=== PATIENT | male | born 1955 | race Caucasian/White ===

== ENCOUNTER 2021-08-04 22:11 | Emergency (ER) | payer MEDICARE ==
[~2021-08-04] VITALS: Ht 182.9 cm; Wt 81.7 kg
== END 2021-08-05 00:40 | disposition home or self-care (01) ==
LOC: ER 22:11
DX: J20.9 Acute bronchitis, unspecified (principal)
CPT/HCPCS: 71045; 94640; 99284-25; A9270; J7512

== ENCOUNTER 2021-09-06 09:52 | Inpatient (IN) | payer MEDICARE ==
[~2021-09-06] VITALS: Ht 182.9 cm; Wt 83.9 kg
[2021-09-06 11:02] LABS: BASOPHILS PERCENT AUTO 1 % (0-2); EOSINOPHILS ABSOLUTE AUTO 0.41 K/mm3 (0.00-0.68); EOSINOPHILS PERCENT AUTO 5 % (0-6); Hematocrit 50.3 % (37.0-53.0); Hemoglobin 17.5 g/dL (13.5-17.5); IMMATURE GRAN ABSOLUTE AUTO 0.03 K/mm3 (0.00-0.10); IMMATURE GRAN PERCENT AUTO 0 % (0-1); LYMPHOCYTES ABSOLUTE AUTO 3.11 K/mm3 (0.84-5.20); LYMPHOCYTES PERCENT AUTO 36 % (21-46); MONOCYTES ABSOLUTE AUTO 0.61 K/mm3 (0.16-1.47); MONOCYTES PERCENT AUTO 7 % (4-13); Mean Corpuscular HGB 32.6 pg (26.0-34.0); Mean Corpuscular HGB Conc 34.8 g/dL (31.5-36.5); Mean Corpuscular Volume 94 fL (80-100); Mean Platelet Volume 9.5 fL (9.1-12.4); NEUTROPHILS PERCENT AUTO 51 % (41-73); Platelet Count 284 K/mm3 (150-400); RDW Coefficient Variation 14.1 % (11.7-14.2); Red Blood Cell Count 5.36 M/mm3 (4.30-5.90); White Blood Cell Count 8.76 K/mm3 (4.00-11.30)
[2021-09-06 11:23] LABS: Alanine Aminotransfer (ALT/SGP 31 U/L (12-78); Alk Phos 40 U/L (50-136); Anion Gap 6 mmol/L (6-16); Aspartate Aminotrans (AST/SGOT 26 U/L (12-37); Bilirubin, Total 0.5 mg/dL (0.1-1.0); Blood Urea Nitrogen 18 mg/dL (8-24); Bun/Creatinine Ratio 20.7 (12.0-20.0); CO2, Blood 26 mmol/L (21-32); Chloride, Blood 107 mmol/L (98-108); Creatinine, Blood 0.87 mg/dL (0.60-1.20); Globulin, Blood 4.2 g/dL (2.2-4.0); Glomerular Filtration Rate >60 (60-); Glucose, Blood 105 mg/dL (70-99); Potassium, Blood 4.4 mmol/L (3.5-5.5); Sodium, Blood 139 mmol/L (136-145); Total Protein, Blood 8.2 g/dL (6.4-8.2); Troponin I 0.238 ng/mL (0.000-0.040)
--- NOTE | 2021-09-06 18:58 | NUR ---
PATIENT ADMITTED FROM ED WITH SOB. PATIENT ON 3L NC UPON ADMITTING TO UNIT, SATURATING 94%. PATIENT STATES HE FEELS 'ALOT BETTER' THAN HE DID EARLIER IN DAY. TELE MONITORING STARTED, SINUS TACHY 110. PATIENT DENIES CP. BP ELEVATED 206/114. CONTACTED, ONE TIME ORDER FOR 5MG METOPROLOL GIVEN.
[2021-09-06] MEDS ORDERED: GUAI600T33 PO (23:55)
[2021-09-07 03:38] LABS: BASOPHILS ABSOLUTE AUTO 0.02 K/mm3 (0.00-0.23); BASOPHILS PERCENT AUTO 0 % (0-2); EOSINOPHILS PERCENT AUTO 0 % (0-6); Hematocrit 49.1 % (37.0-53.0); Hemoglobin 17.2 g/dL (13.5-17.5); IMMATURE GRAN ABSOLUTE AUTO 0.04 K/mm3 (0.00-0.10); IMMATURE GRAN PERCENT AUTO 0 % (0-1); LYMPHOCYTES ABSOLUTE AUTO 1.18 K/mm3 (0.84-5.20); LYMPHOCYTES PERCENT AUTO 11 % (21-46); MONOCYTES PERCENT AUTO 1 % (4-13); Mean Corpuscular HGB 32.6 pg (26.0-34.0); Mean Corpuscular Volume 93 fL (80-100); Mean Platelet Volume 9.5 fL (9.1-12.4); NEUTROPHILS ABSOLUTE AUTO 9.81 K/mm3 (1.96-9.15); NEUTROPHILS PERCENT AUTO 88 % (41-73); Platelet Count 266 K/mm3 (150-400); RDW Standard Deviation 48.6 fL (35.1-46.3); Red Blood Cell Count 5.27 M/mm3 (4.30-5.90); White Blood Cell Count 11.15 K/mm3 (4.00-11.30)
[2021-09-07 03:57] LABS: Anion Gap 5 mmol/L (6-16); Blood Urea Nitrogen 21 mg/dL (8-24); Bun/Creatinine Ratio 24.9 (12.0-20.0); CHOL/HDL RATIO 4.6; CO2, Blood 26 mmol/L (21-32); Calcium, Blood 9.1 mg/dL (8.5-10.1); Chloride, Blood 108 mmol/L (98-108); Cholesterol 257 mg/dL (50-200); Creatinine, Blood 0.84 mg/dL (0.60-1.20); Glomerular Filtration Rate >60 (60-); Glucose, Blood 161 mg/dL (70-99); HDL Cholesterol 56 mg/dL (>39); LDL/HDL RATIO 3.2; Low Density Lipoprotein Chol 180 mg/dL (0-110); Potassium, Blood 4.3 mmol/L (3.5-5.5); Sodium, Blood 139 mmol/L (136-145); Triglycerides 104 mg/dL (30-160); Very Low Density Lipoprot Chol 20 mg/dL (6-32)
--- NOTE | 2021-09-07 09:49 | NUR ---
Echocardiogram completed.
[2021-09-07] MEDS ORDERED: GUAI600T33 PO (11:27)
[2021-09-07] MEDS ORDERED: ASPI81CH PO (11:27)
[2021-09-07] MEDS ORDERED: AIRDUO RESPICL1 EAC4 (11:28)
[2021-09-07] MEDS ORDERED: AZIT500 PO (11:28)
[2021-09-07] MEDS ORDERED: AMLO5 PO (11:29)
[2021-09-07] MEDS ORDERED: COMBIVENT RESPIM4 G1 INH (11:31)
[2021-09-07] MEDS ORDERED: Prednisone10 MG PO (11:32)
[2021-09-07] MEDS ORDERED: Chantix1 MG PO (11:34)
--- NOTE | 2021-09-07 12:02 | NUR ---
DISCHARGE: ABLE TO WEAN PT TO RA THIS AM. SP02 96%, PT DENIES SOB. DISCHARGE PACKET PRINTED AND PT EDUCATED. MEDS FAXED TO [facility] IN [place]. IV DC'D WNL. PT LEFT UNIT AT 1200 VIA WHEELCHAIR WITH NIKIA CLEMONS.
== END 2021-09-07 15:00 | disposition home or self-care (01) | DRG 189 ==
LOC: ER 09:52 → SURS 13:53 → ERHOLD 13:53 → SURS 18:08
PROVIDERS: Physician Assistant; ADMIT Internal Medicine
PROC: 5A09357 Assistance with Respiratory Ventilation, Less than 24 Consecutive Hours, Continuous Positive Airway Pressure (ICD-10-PCS; principal; 2021-09-06)
DX: J96.01 Acute respiratory failure with hypoxia (principal); I21.A1 Myocardial infarction type 2; J44.1 Chronic obstructive pulmonary disease with (acute) exacerbation; Z66 Do not resuscitate; F17.210 Nicotine dependence, cigarettes, uncomplicated; I73.9 Peripheral vascular disease, unspecified
CPT/HCPCS: 36415; 71045; 80048; 80053; 80061; 83880; 84484; 85025; 93005; 93010; 93306; 94640; 94660; 94664; 94760; 94762; 96374; 99284-25; A9270; J1650; J2930

== ENCOUNTER 2023-08-21 06:42 | Inpatient (IN) | payer OTHER ==
[2023-08-21] VITALS (15 sets, daily range): BP systolic 113–163; BP diastolic 61–96
[~2023-08-21] VITALS: Ht 182.9 cm; Wt 77.4 kg
[~2023-08-21 06:42] MED LIST: AIRDUO RESPICL1 EAC4; AMLO5 PO; ASPI81CH PO; AZIT500 PO; COMBIVENT RESPIM4 G1 INH; Chantix1 MG PO; GUAI600T33 PO; Prednisone10 MG PO
[2023-08-21 07:00] LABS: PCO2 Arterial 44.5 mmHg (35-45); PO2 Arterial 162 mmHg (80-100)
[2023-08-21 07:03] LABS: BASOPHILS ABSOLUTE AUTO 0.08 K/mm3 (0.00-0.23); BASOPHILS PERCENT AUTO 1 % (0-2); EOSINOPHILS ABSOLUTE AUTO 0.64 K/mm3 (0.00-0.68); EOSINOPHILS PERCENT AUTO 6 % (0-6); Hematocrit 48.8 % (37.0-53.0); Hemoglobin 16.6 g/dL (13.5-17.5); IMMATURE GRAN ABSOLUTE AUTO 0.02 K/mm3 (0.00-0.10); IMMATURE GRAN PERCENT AUTO 0 % (0-1); LYMPHOCYTES ABSOLUTE AUTO 3.45 K/mm3 (0.84-5.20); LYMPHOCYTES PERCENT AUTO 34 % (21-46); MONOCYTES ABSOLUTE AUTO 0.74 K/mm3 (0.16-1.47); MONOCYTES PERCENT AUTO 7 % (4-13); Mean Corpuscular HGB 32.9 pg (26.0-34.0); Mean Corpuscular Volume 97 fL (80-100); Mean Platelet Volume 9.7 fL (9.1-12.4); NEUTROPHILS ABSOLUTE AUTO 5.11 K/mm3 (1.96-9.15); NEUTROPHILS PERCENT AUTO 51 % (41-73); Platelet Count 247 K/mm3 (150-400); RDW Coefficient Variation 14.2 % (11.7-14.2); RDW Standard Deviation 50.2 fL (35.1-46.3); Red Blood Cell Count 5.04 M/mm3 (4.30-5.90); White Blood Cell Count 10.04 K/mm3 (4.00-11.30)
[2023-08-21 07:05] LABS: Calcium, Ionized (POC) 1.07 mmol/L (1.10-1.46); Chloride (POC) 108 mmol/L (98-108); Creatinine (POC) 1.1 mg/dL (0.8-1.3); Glucose (ISTAT POC) 219 mg/dL (70-99); Hemoglobin (POC) 17.3 g/dL (13.5-17.5); Potassium (POC) 4.7 mmol/L (3.5-5.5); Sodium (POC) 140 mmol/L (135-148); Total CO2 (POC) 22 mmol/L (21-32)
[2023-08-21 07:27] LABS: Albumin, Blood 3.7 g/dL (3.4-5.0); Albumin/Globulin Ratio 0.9 (0.8-1.8); Bilirubin, Total 0.5 mg/dL (0.1-1.0); Bun/Creatinine Ratio 14.7 (12.0-20.0); Calcium, Blood 8.8 mg/dL (8.5-10.1); Creatinine, Blood 1.16 mg/dL (0.60-1.20); Potassium, Blood 4.5 mmol/L (3.5-5.5); Total Protein, Blood 7.7 g/dL (6.4-8.2)
[2023-08-21 07:47] LABS: Influenza A, PCR NEGATIVE (NEGATIVE); Influenza B, PCR NEGATIVE (NEGATIVE); Resp Syncytial Virus, PCR NEGATIVE (NEGATIVE); SARS-Cov-2 (COVID-19) PCR, MMC NEGATIVE (NEGATIVE)
[2023-08-21 09:41] LABS: Anti-Xa UFH, PHA Monitoring <0.10 IU/mL; International Normalized Ratio 1.04; Prothrombin Time Results 10.9 Sec (9.7-11.5)
[2023-08-21 10:17] LABS: pH Blood Venous 7.33 (7.34-7.37)
[2023-08-21 10:18] LABS: Base Excess Venous -2.1 mmol/L; Bicarbonate Venous 22.4 mmol/L (24.0-30.0); PCO2 Venous 45.2 mmHg (38-42)
--- NOTE | 2023-08-21 15:17 | NUR ---
Spoke with Dr Weldon and discussed case. Pt admitted for stroke and his wishes are Full Code. Pt may benefit from completing POLST reflecting his wishes. Pt resting in bed and is A&OX4. Pt does have slurred speech. Pt denies pain, anxiety, and nausea. Pt does have a non productive cough contributing to SOB. Pt's SO Mirian at bedside. Engaged in therapeutic discussion regarding POLST form. Educated on choices and answered questions. Pt requests SO Mirian to complete for him. POLST completed and hung on Pt's whiteboard for hospitalist to sign during rounds. Brief review of plan of care. Pt and SO report no concerns at this time. Palliative Care will remain available
--- NOTE | 2023-08-21 17:50 | NUR ---
PT ARRIVED TO [facility] AT APROX 1050 FROM ER VIA GURNEY. PT TRANSFERED OVER TO HOSPITAL BED BY CLINICAL STAFF. A&OX4, L SIDED FACIAL DROOP, L TOUNGE DEVIATION, L UPPER EXTREMITY WEAKNESS, NO ENROLLMENT COORDINATOR, FULL SENSATION TO L SIDE, DENIES NUMBNESS/TINGLING. FAILED BEDSIDE SWALLOW IN ER, PT IS NPO UNTIL EVALUATED BY ST. ADMISSION COMPLETED OTHER THAN MED REC. PT'S PHARMACY IS NOT OPEN TODAY, WILL NEED MED LIST OBTAINED TOMORROW BY RN. SEE DOCUMENTED VS AND ASSESSMENT. HEPARIN GTT RUNING PER ORDERS ON ARRIVAL FROM ER, SETTINGS CHECKED BY THIS RN AND ARE CORRECT. ECHO COMPLETED. NEURO CHECKS Q 4 HRS PER MD ORDER, NO CHANGES T/O SHIFT. PALLIATIVE CARE VISITED PT AND SO, SEE NOTE. NO ACUTE DISTRESS NOTED. PT IS RESTING WITH EYES CLOSED, RESPIRATIONS EVEN AND UNLABORED, APPEARS TO BE SLEEPING AT THIS TIME. CALL LIGHT IN REACH, WILL CONINTUE TO MONITOR AND GIVE REPORT TO NOC SHIFT RN.
[2023-08-22 03:41] LABS: BASOPHILS ABSOLUTE AUTO 0.01 K/mm3 (0.00-0.23); BASOPHILS PERCENT AUTO 0 % (0-2); EOSINOPHILS PERCENT AUTO 0 % (0-6); Hematocrit 42.1 % (37.0-53.0); Hemoglobin 14.8 g/dL (13.5-17.5); IMMATURE GRAN ABSOLUTE AUTO 0.05 K/mm3 (0.00-0.10); IMMATURE GRAN PERCENT AUTO 0 % (0-1); LYMPHOCYTES ABSOLUTE AUTO 1.35 K/mm3 (0.84-5.20); LYMPHOCYTES PERCENT AUTO 11 % (21-46); MONOCYTES ABSOLUTE AUTO 0.23 K/mm3 (0.16-1.47); MONOCYTES PERCENT AUTO 2 % (4-13); Mean Corpuscular HGB 33.2 pg (26.0-34.0); Mean Corpuscular HGB Conc 35.2 g/dL (31.5-36.5); Mean Corpuscular Volume 94 fL (80-100); Mean Platelet Volume 9.7 fL (9.1-12.4); NEUTROPHILS PERCENT AUTO 87 % (41-73); Platelet Count 222 K/mm3 (150-400); RDW Standard Deviation 48.9 fL (35.1-46.3); Red Blood Cell Count 4.46 M/mm3 (4.30-5.90); White Blood Cell Count 12.34 K/mm3 (4.00-11.30)
[2023-08-22 04:00] LABS: Albumin, Blood 3.4 g/dL (3.4-5.0); Bilirubin, Total 0.7 mg/dL (0.1-1.0); Bun/Creatinine Ratio 21.6 (12.0-20.0); Calcium, Blood 8.9 mg/dL (8.5-10.1); Creatinine, Blood 1.02 mg/dL (0.60-1.20); Globulin, Blood 3.4 g/dL (2.2-4.0); Potassium, Blood 4.3 mmol/L (3.5-5.5); Total Protein, Blood 6.8 g/dL (6.4-8.2)
[2023-08-22 05:20] VITALS: BP 158/81
--- NOTE | 2023-08-22 05:50 | NUR ---
End of shift note. Pt has been resting on and off throughout the night. Some irritation about the amount of blood draws and NPO status. Pt was educated on ST eval during dayshift and the importance of coag results. No changes with neuro status. LUE remains flaccid with postive sensation. Facial droop remains unchanged. LLE WNL. Pt is able to make needs known, call light is within reach.
[2023-08-22 07:18] VITALS: BP 146/86
--- NOTE | 2023-08-22 07:30 | NUR ---
INITIAL ASSESSMENT: Patient is alert and oriented x4.He has a left facial droop and left tounge deviation. His left hand is flaccid, he is able to lift his arm with the assistance of his right arm. His pedal plantar flexion is weak on the left and he is not able to perfrom both feet at the same time. His left pupil is sluggish compared to a brisk right pupil. He denies pain at this time. HRR, ST in the 90s-low 100s. LS DIM in the left lung with some exp wheezing noted. In the right lobe he is coarse with some exp wheezing noted as well. BT+, pt denies any nausea or diarrhea. Patient is currently NPO until speech therapy is able to come and assess him-he failed the bedside swallow eval in the emergency room. PPP, faint. VSS. His sig other is at bedside he denies other needs at this time. Call light in reach, bed alarm on for safety.
[2023-08-22 12:31] VITALS: BP 133/75
[2023-08-22 16:54] VITALS: BP 146/80
[2023-08-22 19:55] VITALS: BP 153/82
[2023-08-23] VITALS (13 sets, daily range): BP systolic 123–160; BP diastolic 69–135
[2023-08-23 03:57] LABS: Hematocrit 43.1 % (37.0-53.0); Platelet Count 245 K/mm3 (150-400)
--- NOTE | 2023-08-23 05:42 | NUR ---
SHIFT SUMMARY PT A/O. STATES HE UNDERSTANDS HIS LEFT ARM IS FLACCID, DOES HAVE MOBILITY IN LEFT LEG/FOOT. PT CALLS FOR HELP USING THE CALL LIGHT APPROPRIATELY. PT UNABLE TO SLEEP WELL ALTHOUGH PLEASANT AND COOPERATIVE THROUGHOUT SHIFT. CONTINUES WITH FACIAL DROOP ON THE LEFT. ST, BP WNL. ON ROOM AIR, LUNGS CLEAR/DIM BASES. ON [facility] SOFT DIET WITH NECTAR THICK LIQUIDS. VOIDS USING THE URINAL INDEPENDENTLY. SKIN UNCHANGED. PIV X1 TO LEFT AC, FLUSHES WELL, HEPARIN DRIP INFUSING. NO FAMILY AT BEDSIDE. POC ONGOING.
--- NOTE | 2023-08-23 09:20 | NUR ---
FIRST THING THIS MORNING PT WAS TAKEN TO CT. PT RETURNED WITH ELEVATED BP, BP CAME DOWN ONCE HE WAS SETTLED. PT ALERT AND ORIENTED X 4, ABLE TO MAKE NEEDS KNOWN. LEFT SIDED FACIAL DROOP AND TONGUE DEVIATION TO THE LEFT. PT ABLE TO MOVE LEFT SHOULDER BUT NOT HIS L ARM OR HAND. PT ABLE TO MOVE LEFT FOOT, WEAKNESS OF L LEG. SPEECH IS APPROPRIATE AND PT ABLE TO MAKE NEEDS KNOWN. PT HAS DENTURES IN HIS ROOM. PT WAS ON MECHANICAL SOFT FOOD, PT AND HIS EXPLAINED THIS MORNING THAT YESTERDAY PT WAS HAVING TROUBLE SWALLOWING CHUNKY FOODS SUCH EGGS, GREEN BEANS, AND A FRUIT CUP. SPEECH THERAPY MET WITH PT TODAY AND ORDERED HIM A PUREE DIET INSTEAD OF MECHANICAL SOFT, PT ON THICK LIQUIDS, TO TAKE MEDS ONE AT A TIME WITH APPLESAUCE, NO STRAWS, SWALLOW EVALUATION SCHEDULED FOR APPROXIMATELY 1030 THIS MORNING. LUNG SOUNDS ARE COURSE AND DIMINISHED, PT ON RA AND MAINTAINING O2 SATURATION ABOVE 93%, PT DENIES SOB. HR SINUS/SINUS TACH PER TELE MONITOR, PT DENIES CHEST PAIN/PRESSURE/DIZZINESS. POSSIBLE URINE INCONTINENCE, WHEN PT RETURNED FROM CT THIS MORNING HIS GRIMES PAD WAS WET. IV IN LEFT AC INFUSING, NO PAIN, SWELLING, REDNESS, IV PATENT. PT'S IS IN THE ROOM WITH HIM. PT IS UP IN CHAIR AND JUST FINISHED BREAKFAST. CALL LIGHT WITHIN REACH.
[2023-08-23] MEDS ORDERED: CLOP75 PO (12:21)
[2023-08-23] MEDS ORDERED: ALBU2.5V5 INH (12:21)
[2023-08-23] MEDS ORDERED: ATOR80 PO (12:21)
--- NOTE | 2023-08-23 12:40 | NUR ---
PT SITTING UP RIGHT AND EATING LUNCH. WAS IN TO SPEAK WITH PT. PT DUE TO DISCHARGE TODAY TO [facility]. PT'S IN THE ROOM WITH HIM, CALL LIGHT WITHIN REACH.
[2023-08-23 13:11] LABS: SARS-Cov-2 (COVID-19) PCR, MMC NEGATIVE (NEGATIVE)
--- NOTE | 2023-08-23 18:03 | NUR ---
PT DISCHARGED FROM FACILITY WITH ALL OF HIS BELONGINGS, AND D/C INSTRUCTIONS VIA [facility]. REPORT GIVEN TO [facility] WHERE PT IS GOING. PT STABLE AT TIME OF TRANSFER.
== END 2023-08-23 17:33 | DRG 64 ==
LOC: ER 06:42 → PCU 10:24
PROVIDERS: Internal Medicine; Student in an Organized Health Care Education/Training Program; ADMIT Internal Medicine
PROC: 5A09357 Assistance with Respiratory Ventilation, Less than 24 Consecutive Hours, Continuous Positive Airway Pressure (ICD-10-PCS; principal; 2023-08-21)
PROC: B24BZZZ Ultrasonography of Heart with Aorta (ICD-10-PCS; 2023-08-21)
DX: I63.311 Cerebral infarction due to thrombosis of right middle cerebral artery (principal); I21.A1 Myocardial infarction type 2; J96.02 Acute respiratory failure with hypercapnia; G81.94 Hemiplegia, unspecified affecting left nondominant side; J44.1 Chronic obstructive pulmonary disease with (acute) exacerbation; Z11.52 Encounter for screening for COVID-19; I73.9 Peripheral vascular disease, unspecified; I10 Essential (primary) hypertension; R29.810 Facial weakness; I25.10 Atherosclerotic heart disease of native coronary artery without angina pectoris; F17.210 Nicotine dependence, cigarettes, uncomplicated; R47.1 Dysarthria and anarthria; R29.704 NIHSS score 4; I65.23 Occlusion and stenosis of bilateral carotid arteries; E83.51 Hypocalcemia; I25.2 Old myocardial infarction; Z79.82 Long term (current) use of aspirin; Z79.52 Long term (current) use of systemic steroids; Z95.820 Peripheral vascular angioplasty status with implants and grafts
CPT/HCPCS: 0241U; 36415; 36600; 70450; 70496; 70498; 71045; 74230; 80047; 80053; 82803; 83036; 83735; 84145; 84443; 84484; 85014; 85018; 85025; 85049; 85520; 85610; 85730; 92526; 92610; 92611; 93005; 93010; 94640; 94644; 94660; 94664; 94760; 94762; 96365-59; 96367; 96375-59; 97112; 97162; 97166; 97530; 97535; 99285-25; A9270; C8929; J0456; J0612; J1644; J2405; J2930; J7030; J7050; Q9957; Q9967; U0002

== ENCOUNTER 2023-10-04 10:32 | Emergency (ER) | payer OTHER ==
[~2023-10-04] VITALS: Ht 182.9 cm; Wt 81.7 kg
[~2023-10-04 10:32] MED LIST changes: +ALBU2.5V5 INH; +ATOR80 PO; +CLOP75 PO
[2023-10-04 11:36] LABS: BASOPHILS ABSOLUTE AUTO 0.04 K/mm3 (0.00-0.23); BASOPHILS PERCENT AUTO 1 % (0-2); EOSINOPHILS ABSOLUTE AUTO 0.16 K/mm3 (0.00-0.68); EOSINOPHILS PERCENT AUTO 2 % (0-6); Hematocrit 42.6 % (37.0-53.0); Hemoglobin 14.8 g/dL (13.5-17.5); IMMATURE GRAN ABSOLUTE AUTO 0.02 K/mm3 (0.00-0.10); IMMATURE GRAN PERCENT AUTO 0 % (0-1); LYMPHOCYTES ABSOLUTE AUTO 2.18 K/mm3 (0.84-5.20); LYMPHOCYTES PERCENT AUTO 32 % (21-46); MONOCYTES ABSOLUTE AUTO 0.74 K/mm3 (0.16-1.47); MONOCYTES PERCENT AUTO 11 % (4-13); Mean Corpuscular HGB 32.6 pg (26.0-34.0); Mean Corpuscular HGB Conc 34.7 g/dL (31.5-36.5); Mean Corpuscular Volume 94 fL (80-100); Mean Platelet Volume 9.6 fL (9.1-12.4); NEUTROPHILS ABSOLUTE AUTO 3.71 K/mm3 (1.96-9.15); NEUTROPHILS PERCENT AUTO 54 % (41-73); Platelet Count 254 K/mm3 (150-400); RDW Coefficient Variation 13.9 % (11.7-14.2); RDW Standard Deviation 48.1 fL (35.1-46.3); Red Blood Cell Count 4.54 M/mm3 (4.30-5.90); White Blood Cell Count 6.85 K/mm3 (4.00-11.30)
[2023-10-04 12:05] LABS: Albumin, Blood 3.9 g/dL (3.4-5.0); Albumin/Globulin Ratio 1.1 (0.8-1.8); Bilirubin, Total 0.6 mg/dL (0.1-1.0); Bun/Creatinine Ratio 15.4 (12.0-20.0); Calcium, Blood 9.4 mg/dL (8.5-10.1); Creatinine, Blood 0.84 mg/dL (0.60-1.20); Globulin, Blood 3.6 g/dL (2.2-4.0); Potassium, Blood 4.5 mmol/L (3.5-5.5); Total Protein, Blood 7.5 g/dL (6.4-8.2)
[2023-10-04 14:12] VITALS: BP 144/87
== END 2023-10-04 15:00 | disposition home or self-care (01) ==
LOC: ER 10:32
PROVIDERS: Emergency Medicine
DX: R07.9 Chest pain, unspecified (principal); J44.9 Chronic obstructive pulmonary disease, unspecified; I25.2 Old myocardial infarction; I25.10 Atherosclerotic heart disease of native coronary artery without angina pectoris; F17.210 Nicotine dependence, cigarettes, uncomplicated; Z79.899 Other long term (current) drug therapy; Z79.82 Long term (current) use of aspirin; Z86.73 Personal history of transient ischemic attack (TIA), and cerebral infarction without residual deficits
CPT/HCPCS: 71046; 80053; 83690; 84484; 85025; 93005; 93010; 99285-25

== ENCOUNTER 2023-12-01 08:54 | Day surgery (SDC) | payer OTHER ==
[~2023-12-01] VITALS: Ht 182.9 cm; Wt 83.0 kg
[~2023-12-01 08:54] MED LIST changes: +CATAPRES0.1 MG PO; +CENTRUM SILVER1 EAC2 PO; +IPRAT-ALBUT 0.5-3 ML INH; +METO25 PO; +TRELEGY ELLIPT1 EACH IH
[2023-12-01 09:30] VITALS: BP 138/70
[2023-12-01] MEDS ORDERED: Heparin Sodium 1000 Units/ML 10ML MDV ONE ×2 (09:41→10:33)
[2023-12-01] MEDS ORDERED: Nitroglycerin 2 MG/20 ML BTL ONE (09:41)
[2023-12-01] MEDS ORDERED: NS 1,000 ML IV ONE ×2 (09:41→10:30)
[2023-12-01] MEDS ORDERED: NS 250 ML IV ONE (09:41)
[2023-12-01 09:59] LABS: BASOPHILS ABSOLUTE AUTO 0.01 K/mm3 (0.00-0.23); BASOPHILS PERCENT AUTO 0 % (0-2); EOSINOPHILS ABSOLUTE AUTO 0.03 K/mm3 (0.00-0.68); EOSINOPHILS PERCENT AUTO 0 % (0-6); Hematocrit 43.7 % (37.0-53.0); Hemoglobin 14.7 g/dL (13.5-17.5); IMMATURE GRAN ABSOLUTE AUTO 0.01 K/mm3 (0.00-0.10); IMMATURE GRAN PERCENT AUTO 0 % (0-1); LYMPHOCYTES ABSOLUTE AUTO 1.72 K/mm3 (0.84-5.20); LYMPHOCYTES PERCENT AUTO 21 % (21-46); MONOCYTES ABSOLUTE AUTO 0.41 K/mm3 (0.16-1.47); MONOCYTES PERCENT AUTO 5 % (4-13); Mean Corpuscular HGB 32.3 pg (26.0-34.0); Mean Corpuscular HGB Conc 33.6 g/dL (31.5-36.5); Mean Corpuscular Volume 96 fL (80-100); Mean Platelet Volume 9.6 fL (9.1-12.4); NEUTROPHILS ABSOLUTE AUTO 5.98 K/mm3 (1.96-9.15); NEUTROPHILS PERCENT AUTO 73 % (41-73); Platelet Count 278 K/mm3 (150-400); RDW Coefficient Variation 14.1 % (11.7-14.2); RDW Standard Deviation 50.3 fL (35.1-46.3); Red Blood Cell Count 4.55 M/mm3 (4.30-5.90); White Blood Cell Count 8.16 K/mm3 (4.00-11.30)
[2023-12-01 10:12] LABS: International Normalized Ratio 1.08; Prothrombin Time Results 11.3 Sec (9.7-11.5)
[2023-12-01] MEDS ORDERED: Midazolam HCl 1MG / ML 2ML Vial ONE (10:30)
[2023-12-01] MEDS ORDERED: FentaNYL Citrate 50 MCG/ML 2 ML Injection ONE (10:30)
[2023-12-01 10:39] LABS: Calcium, Blood 8.9 mg/dL (8.5-10.1); Potassium, Blood 4.3 mmol/L (3.5-5.5)
[2023-12-01] MEDS ORDERED: Alteplase Recombinant 2 MG / Vial ONE (11:48)
[2023-12-01 12:12] VITALS: BP 137/73
[2023-12-01 12:15] VITALS: BP 129/77
--- NOTE | 2023-12-01 12:15 | NUR ---
Pt back to recovery room alert and oriented. S/O in to sit with pt. pt given lunch, but pt wants to wait until after he is able to sit up to eat or drink. R groin site soft nontender. Dressing clean, dry intact. VSS
[2023-12-01 12:30] VITALS: BP 138/73
[2023-12-01] MEDS ORDERED: XARELTO20 MG PO (12:39)
[2023-12-01 13:00] VITALS: BP 134/86
--- NOTE | 2023-12-01 13:59 | NUR ---
PT AND VERBALIZED UNDERSTANDING OF WRITTEN AND VERBAL D/C INST. IV REMOVED.
--- NOTE | 2023-12-01 13:59 | NUR ---
PT UP TO THE BATHROOM /C SBA. TOLERATED WELL. -BLEEDING OR SWELLING R GROIN AREA.
--- NOTE | 2023-12-01 14:08 | NUR ---
PT TAKEN OUT OF THE HRT CENTER VIA W/C.
[2023-12-07] MEDS ORDERED: PRED20 PO (13:16)
[2023-12-07] MEDS ORDERED: Prozac20 MG PO (13:19)
[2023-12-07] MEDS ORDERED: TYLENOL PM (13:19)
[2023-12-07] MEDS ORDERED: COMBIVENT RESPIM4 G1 (13:20)
== END 2023-12-01 14:10 | disposition home or self-care (01) ==
LOC: MHTC 08:54
PROVIDERS: Radiology Diagnostic Radiology
DX: I70.223 Atherosclerosis of native arteries of extremities with rest pain, bilateral legs (principal); I10 Essential (primary) hypertension; J44.9 Chronic obstructive pulmonary disease, unspecified; I25.10 Atherosclerotic heart disease of native coronary artery without angina pectoris; I25.2 Old myocardial infarction; I99.8 Other disorder of circulatory system; Z79.82 Long term (current) use of aspirin; Z79.899 Other long term (current) drug therapy; Z86.73 Personal history of transient ischemic attack (TIA), and cerebral infarction without residual deficits; Z87.891 Personal history of nicotine dependence
CPT/HCPCS: 37213; 75625; 75716; 75774; 76937; 80048; 85025; 85610; 99152; 99153; C1725; C1760; C1769; C1874; C1887; C1894; C9764; C9765; J1644; J2250; J2997; J3010; J7030; J7050; Q9967

== ENCOUNTER 2023-12-08 06:38 | Day surgery (SDC) | payer OTHER ==
[2023-12-08] VITALS (12 sets, daily range): BP systolic 86–126; BP diastolic 52–72
[~2023-12-08] VITALS: Ht 182.9 cm; Wt 87.0 kg
[~2023-12-08 06:38] MED LIST changes: +COMBIVENT RESPIM4 G1; +PRED20 PO; +Prozac20 MG PO; +TYLENOL PM; +XARELTO20 MG PO
[2023-12-08] MEDS ORDERED: NS 1,000 ML IV ONE ×2 (06:53→07:24)
[2023-12-08] MEDS ORDERED: Verapamil HCL 2.5 MG/ML 2ML Injection ONE (06:53)
[2023-12-08] MEDS ORDERED: Heparin Sodium 1000 Units/ML 10ML MDV ONE ×2 (06:53→07:23)
[2023-12-08] MEDS ORDERED: NS 250 ML IV ONE (06:53)
[2023-12-08] MEDS ORDERED: Nitroglycerin 2 MG/20 ML BTL ONE (06:53)
[2023-12-08] MEDS ORDERED: Midazolam HCl 1MG / ML 2ML Vial ONE (07:23)
[2023-12-08] MEDS ORDERED: FentaNYL Citrate 50 MCG/ML 2 ML Injection ONE (07:23)
--- NOTE | 2023-12-08 08:20 | NUR ---
PATIENT ARRIVED TO RECOVERY ROOM SITTING UP IN BED. R RADIAL SITE WITH TR BAND FULLY INFALTED. SITE C/D/I SOFT/NONTENDER. NO EVIDENCE OF HEMATOMA. VSS ON RA. PATIENT DENYING ANY PAIN.
--- NOTE | 2023-12-08 09:01 | NUR ---
PATIENT TOLERATING PO INTAKE WELL. R RADIAL TR BAND FULLY INFLATED. SITE C/D/I SOFT/NONTENDER, NO EVIDEWNCE OF BLEEDING. PATIENT COMPLAINING OF SOME NUMBNESS IN THUMB. 1 CC OF AIR REMOVED FROM BAND. NO EVIDENCE OF BLEEDING. VSS ON RA.
--- NOTE | 2023-12-08 09:34 | NUR ---
PT TOLERATING PO INTAKE WELL. ADDITIONAL AIR REMOVED FROM R RADIAL TR BAND. VSS ON RA
--- NOTE | 2023-12-08 09:50 | NUR ---
ALL AIR REMOVED FROM R RADIAL TR BAND. SITE C/D/I SOFT/NONTENDER, NO EVIDENCE OF BLEEDING. NUMBNESS IN THUMB RESOVLED. PATIENT DENYING ANY PAIN. VSS ON RA
--- NOTE | 2023-12-08 10:08 | NUR ---
DISCHARGE INSTRUCTIONS REVIEWED WITH PATIENT AND SPOUSE. ALL QUESTIONS WERE ANSWERED
--- NOTE | 2023-12-08 10:46 | NUR ---
IV DC'D, CATH INTACT. PT AND SPOUSE VERBALIZED UNDERSTANDING OF DC INSTRUCTIONS AND FOLLOW UP INFO. TR BAND REMOVED FROM RIGHT WRIST. CLOTH DOT DRESSING AND SPLINT PLACED OVER SITE. NO BLEEDING OR SWELLING NOTED, PT DENIES ANY DISCOMFORT AT SITE. VSS, PT OUT TO CAR VIA WHEELCHAIR.
== END 2023-12-08 10:45 | disposition home or self-care (01) ==
LOC: MHTC 06:38
DX: I25.10 Atherosclerotic heart disease of native coronary artery without angina pectoris (principal); I25.82 Chronic total occlusion of coronary artery; I63.9 Cerebral infarction, unspecified; E78.2 Mixed hyperlipidemia; I73.9 Peripheral vascular disease, unspecified; I77.9 Disorder of arteries and arterioles, unspecified; I25.2 Old myocardial infarction; I10 Essential (primary) hypertension; J44.9 Chronic obstructive pulmonary disease, unspecified; F17.210 Nicotine dependence, cigarettes, uncomplicated; Z79.82 Long term (current) use of aspirin; Z79.899 Other long term (current) drug therapy
CPT/HCPCS: 76937; 93454; 99152; C1769; C1894; J1644; J2250; J3010; J7030; J7050; Q9967

== ENCOUNTER 2023-12-14 17:00 | Emergency (ER) | payer OTHER ==
[~2023-12-14] VITALS: Ht 182.9 cm; Wt 86.2 kg
[2023-12-14 17:43] VITALS: BP 170/77
== END 2023-12-14 18:35 | disposition left against medical advice (07) ==
LOC: ER 17:00
DX: M79.622 Pain in left upper arm (principal); Z53.29 Procedure and treatment not carried out because of patient's decision for other reasons
CPT/HCPCS: 73060; 99281-25